=== PATIENT | female | born 1985 | race Caucasian/White ===

== ENCOUNTER 2017-07-20 10:00 | Emergency (ER) | payer OTHER ==
[~2017-07-20] VITALS: Ht 167.6 cm; Wt 115.4 kg
[~2017-07-20 10:00] MED LIST: CELEXA20 MG PO; PROAIR HFA8.5 GM IH; SYMBICORT60 INHALAT IH; TYLENOL WITH CODEINE; ZESTORETIC,P1 TABLET PO
[2017-07-20 12:20] LABS: HEMATOCRIT 41.2 % (36.0-46.0); HEMOGLOBIN 13.8 G/DL (11.9-15.5); MCH 28.6 PG (29.0-34.0); MCHC 33.5 G/DL (30.0-36.0); MCV 85.3 FL (83-99); PLATELET COUNT 265 K/uL (156-360); RBC DIS.WIDTH-CV 12.7 % (11.8-14.6); RBC DIS.WIDTH-SD 38.6 % (39-53); RED BLOOD COUNT 4.83 M/uL (3.80-5.20); WHITE BLOOD COUNT 9.7 K/uL (4.1-10.2)
[2017-07-20 12:37] LABS: CHLORIDE 110 mEq/L (99-109); POTASSIUM 4.4 mEq/L (3.7-5.4); SODIUM 138 mEq/L (136-147)
[2017-07-20 12:39] LABS: GLUCOSE 95 mg/dL (70-99)
[2017-07-20 12:43] LABS: CREATININE 0.6 mg/dL (0.6-1.3); GFR ESTIMATE (CALCULATED) > 59 mL/min/
[2017-07-20 12:44] LABS: UREA NITROGEN (BUN) 9 mg/dL (9-23)
[2017-07-20 12:47] LABS: TROP-I INTERPRETATION NEGATIVE; TROPONIN-I < 0.01 ng/mL (0.0-0.30)
[2017-07-20 13:39] VITALS: BP 149/101
== END 2017-07-20 13:42 | disposition home or self-care (01) ==
LOC: EME 10:00
PROVIDERS: Emergency Medicine
DX: R51 Headache (principal); I10 Essential (primary) hypertension; F32.9 Major depressive disorder, single episode, unspecified
CPT/HCPCS: 80048; 84484; 85027; 93005; 99281; 99284; J1200; J2765; J7030